=== PATIENT | female | born 1960 | race Caucasian/White ===

== ENCOUNTER 2025-05-14 10:25 | Observation (INO) | payer BC ==
[~2025-05-14] VITALS: Ht 170.2 cm; Wt 54.4 kg
[2025-05-14 11:59] LABS: BASOPHILS % 0.5 % (0.0-1.0); EOSINOPHILS % 0.4 % (0.0-6.0); LYMPHOCYTES % 31.8 % (18.0-39.1); MONOCYTES % 6.9 % (4.4-11.3); NEUTROPHILS % 60.1 % (38.7-80.0); RED CELL DISTRIBUTION WIDTH 12.9 % (11.7-14.4)
[2025-05-14 12:28] LABS: EST GLOMERULAR FILTRATION RATE 88.0 ML/MIN (>=60)
[2025-05-14] MEDS ORDERED: Morphine 4mg INJECTION 4 MG/ML INJ IV PRN (14:45)
[2025-05-14] MEDS ORDERED: ONDANSETRON HCL INJ 2MG/ML 2ML 2 MG/ML VIAL IV PRN ×2 (14:45→18:00)
[2025-05-14 17:47] VITALS: PULSE 74; RESP 18; TEMP 98.6
[2025-05-14] MEDS ORDERED: POTASSIUM CHLORIDE 20 MEQ TAB CR PO PRN (18:00)
[2025-05-14] MEDS ORDERED: MELATONIN 5 MG TABLET PO PRN (18:00)
[2025-05-14] MEDS ORDERED: DEXTROSE 50% SYRINGE 50 ML IV PRN (18:00)
[2025-05-14] MEDS ORDERED: ACETAMINOPHEN 325 MG TAB PO PRN (18:00)
[2025-05-14] MEDS ORDERED: LIDOCAINE 4% PATCH TP PRN (18:00)
[2025-05-14] MEDS ORDERED: DOCUSATE SODIUM 100 MG CAP PO PRN (18:00)
[2025-05-14] MEDS ORDERED: HYDRALAZINE HCL 20 MG/ML VIAL IV PRN (18:00)
[2025-05-14] MEDS ORDERED: SIMETHICONE 80 MG CHEW PO PRN (18:00)
[2025-05-14] MEDS ORDERED: DIPHENHYDRAMINE HCL 25 MG CAP PO PRN (18:00)
[2025-05-14] MEDS ORDERED: BENZONATATE 100 MG CAP PO PRN (18:00)
[2025-05-14] MEDS ORDERED: ALBUTEROL/IPRATROPIUM 3 ML NEB NEB PRN (18:00)
[2025-05-14 19:05] VITALS: BP 119/67; PULSE 66; RESP 18; TEMP 97.7; O2SAT 100
[2025-05-14 19:10] VITALS: BP 119/67; PULSE 66; RESP 18; TEMP 97.7; O2SAT 100
[2025-05-14 19:39] VITALS: BP 104/73; PULSE 81; RESP 18; TEMP 97.4; O2SAT 100
[2025-05-14 23:09] VITALS: BP 92/63; PULSE 82; RESP 18; TEMP 97.5; O2SAT 98
[2025-05-15] VITALS (7 sets, daily range): BP systolic 90–110; BP diastolic 63–77; PULSE 69–84; RESP 17–18; TEMP 97.3–98.1; O2SAT 97–100
[2025-05-15 05:40] LABS: BASOPHILS % 1.0 % (0.0-1.0); EOSINOPHILS % 2.5 % (0.0-6.0); LYMPHOCYTES % 54.7 % (18.0-39.1); MONOCYTES % 8.1 % (4.4-11.3); NEUTROPHILS % 33.5 % (38.7-80.0); RED CELL DISTRIBUTION WIDTH 13.0 % (11.7-14.4)
[2025-05-15 06:24] LABS: CHOL/HDL RATIO 4.4 (3.0-3.6); EST GLOMERULAR FILTRATION RATE 87.0 ML/MIN (>=60); LDL CHOLESTEROL 144.0 MG/DL (60-130); PHOSPHORUS 3.6 MG/DL (2.3-4.7)
[2025-05-15] MEDS: PANTOPRAZOLE SOD 40 MG TABEC PO SCH (09:26)
[2025-05-15] MEDS: ENOXAPARIN SOD INJ 40 MG/0.4 ML SYR SC SCH (16:45)
[2025-05-15] MEDS: SODIUM CHLORIDE 0.9% 1000ML 1,000 ML IV SCH (17:38)
[2025-05-15] MEDS ORDERED: LUNESTA3 MG PO (19:31)
[2025-05-15] MEDS: ATORVASTATIN 10 MG TAB PO SCH (21:06)
[2025-05-16] VITALS: BP_SYST 107; BP_SYST 81; BP_DIAS 59; BP_DIAS 77; PULSE 73; PULSE 78; RESP 17; RESP 18; TEMP 97.2; TEMP 97.6; O2SAT 100
[2025-05-16 04:00] VITALS: BP 101/56; PULSE 86; RESP 17; TEMP 97; O2SAT 96
[2025-05-16 08:04] VITALS: BP 101/56; PULSE 86; RESP 17; TEMP 97; O2SAT 96
[2025-05-16 08:46] VITALS: BP 89/71; PULSE 97; RESP 18; TEMP 97.4; O2SAT 96
[2025-05-16 12:16] VITALS: BP 121/74; PULSE 73; RESP 20; TEMP 97.3; O2SAT 100
[2025-05-16 17:16] VITALS: BP 124/89; PULSE 70; RESP 18; TEMP 98; O2SAT 100
== END 2025-05-16 17:50 | disposition home or self-care (01) ==
LOC: ER 10:56 → ERHOLD 14:45 → MED/SURG3 18:57
PROVIDERS: ADMIT Internal Medicine; ATTEND Internal Medicine
DX: I65.22 Occlusion and stenosis of left carotid artery (principal); M34.9 Systemic sclerosis, unspecified; I73.00 Raynaud's syndrome without gangrene; I69.844 Monoplegia of lower limb following other cerebrovascular disease affecting left non-dominant side; I95.9 Hypotension, unspecified
CPT/HCPCS: 36415 ×2; 71045; 80048 ×2; 80061; 82550; 82607; 83036; 83735; 84100; 84443; 84484 ×3; 85025 ×2; 93005; 93306; 93880; 97116; 97161; G0378 ×3; J1650; J2470 ×2; J7030 ×2